=== PATIENT | female | born 1995 | race Caucasian/White ===

== ENCOUNTER 2018-10-23 19:05 | Emergency (ER) | payer SELFPAY ==
[~2018-10-23] VITALS: Ht 154.9 cm; Wt 59.0 kg
--- NOTE | 2018-10-23 19:40 | Diagnostic Imaging Report ---
INDICATION: Right wrist injury. TIME OF EXAM: 7:10 p.m. EXAMINATION: Three views of the right wrist were obtained. FINDINGS: The distal radius and ulna are intact. The carpus is intact. The metacarpals are unremarkable. No fractures are seen. IMPRESSION: No acute bony abnormality is detected. Dictated by: Dictated on workstation # [id number]
--- NOTE | 2018-10-23 20:37 | ED Upper Extremity ---
General Chief Complaint: Upper Extremity Stated Complaint: RT WRIST INJ Nursing Triage Note: right wrist injury friday playing kickball Nursing Sepsis Screen: No Definite Risk Source: patient History of Present Illness Date Seen by Provider: Oct 23, 2018 Time Seen by Provider: 20:36 Initial Comments 23-year-old female presenting with complaints of right wrist pain. She states that she injured it on Friday playing kickball. She tended to get something that day. She's had increasing pain since then. Especially today it was feeling worse. She has some mild bruising to the wrist and there is mild swelling. She denies any numbness or tingling. She has not tried taking anything for the pain today. She states that the pain is worse when she is using her hand and wrist. It is especially worse when she tries to lift or if she hits something against the wrist. Allergies and Home Medications Home Medications Ibuprofen 800 Mg Tablet, 600 MG PO Q8H PRN for PAIN Prescribed by: JOSE LYONS on 10/23/182055 Patient Home Medication List Home Medication List Reviewed: Yes Review of Systems Constitutional: no symptoms reported EENTM: no symptoms reported Respiratory: no symptoms reported Cardiovascular: no symptoms reported Gastrointestinal: no symptoms reported Genitourinary: no symptoms reported Musculoskeletal: see HPI Skin: see HPI Past Yadytla-Xcanna-Mzeifa Hx Past Med/Social Hx: Reviewed Nursing Past Med/Soc Hx Patient Social History Alcohol Use: Denies Use Recreational Drug Use: No Smoking Status: Never a Smoker 2nd Hand Smoke Exposure: No Recent Foreign Travel: No Contact w/Someone Who Travel: No Recent Infectious Disease Expo: No Recent Hopitalizations: No Physical Abuse: No Sexual Abuse: No Mistreated: No Fear: No Seasonal Allergies Seasonal Allergies: No Past Medical History Surgeries: No Respiratory: No Cardiac: No Neurological: No Genitourinary: No Gastrointestinal: No Musculoskeletal: No Endocrine: No HEENT: No Cancer: No Psychosocial: No Integumentary: No Blood Disorders: No Physical Exam Vital Signs Vital Signs - First Documented 10/23/18 10/23/18 19:32 21:07 Temp 98.1 Pulse 85 Resp 16 B/P (MAP) 134/73 (93) Pulse Ox 98 O2 Delivery Room Air Capillary Refill : Less Than 3 Seconds Height, Weight, BMI Height: 5'1.00" Weight: 130lbs. oz. 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, no motor/sensory deficits, alert, normal mood/affect, oriented x 3 Skin: warm/dry, ecchymosis (medial area of right wrist where she has pain and mild swelling) Progress/Results/Core Measures Results/Orders My Orders Orders - JOSE LYONS MD Wrist 3 View Right (10/23/18 19:26) Orthopedic Equiment (10/23/18 20:37) Ice: Apply To Affected Area (10/23/18 20:37) Vital Signs/I&O 10/23/18 10/23/18 19:32 21:07 Temp 98.1 Pulse 85 88 Resp 16 B/P (MAP) 134/73 (93) 120/62 (81) Pulse Ox 98 O2 Delivery Room Air Room Air Blood Pressure Mean: 93 Progress Progress Note : Progress Note Reviewed xrays of wrist and reading from radiologist. No definite fractures seen and treated. We will treat with splint, ice, rest and follow up with clinic if not improving. Counseled on use of NSAIDs as well. Diagnostic Imaging Diagonstic Imaging: Xray Plain Films/CT/US/NM/MRI: other (wrist) Comments NAME: RODRIGUEZ CASTILLO [facility] REC#: [id number] PT STATUS: DEP ER : 1995 PHYSICIAN: JOSE LYONS MD ADMIT DATE: 10/23/18/ER FS Signed Date of Exam:10/23/18 WRIST 3 VIEW RIGHT INDICATION: Right wrist injury. TIME OF EXAM: 7:10 p.m. EXAMINATION: Three views of the right wrist were obtained. FINDINGS: The distal radius and ulna are intact. The carpus is intact. The metacarpals are unremarkable. No fractures are seen. IMPRESSION: No acute bony abnormality is detected. Dictated by: Dictated on workstation # [id number] Dict: 10/23/181936 Trans: 10/23/182141 [facility] [id number] Interpreted by: NELLI HANCOCK MD Electronically signed by: NELLI HANCOCK MD 10/23/182141 Reviewed: Reviewed by Me (and radiology report) Departure Impression Primary Impression: Contusion of wrist Qualified Codes: S60.211A - Contusion of right wrist, initial encounter Additional Impression: Acute pain of right wrist Disposition: HOME, SELF-CARE Condition: Stable Departure-Patient Inst. Decision time for Depature: 20:54 Referrals: CLIFF FREIRE MD (PCP) Primary Care Physician Patient Instructions: Contusion (DC), Wrist Sprain (DC) Add. Discharge Instructions: Wear splint on your wrist to help with pain and support. Check with the clinic about your wrist if not improving within the next week with using the splint and taking Ibuprofen 600 mg every 8 hours as needed for pain and swelling. You may also apply ice 15-20 minutes every few hours as needed for pain and swelling/bruising. All discharge instructions reviewed with patient and/or family. Voiced understanding. Scripts Ibuprofen (Ibuprofen) 800 Mg Tablet 600 MG PO Q8H PRN for PAIN for 10 Days, #30 TAB 0 Refills Prov: JOSE LYONS MD 10/23/18 JOSE LYONS MD Oct 23, 2018 20:36
[2018-10-23] MEDS ORDERED: IBUP-1780 PO (20:56)
[2018-10-23 21:07] VITALS: BP 120/62
== END 2018-10-23 21:08 | disposition home or self-care (01) ==
LOC: EDUNIT# 19:05 → ER FS 19:08
DX: S60.211A Contusion of right wrist, initial encounter (principal); W21.00XA Struck by hit or thrown ball, unspecified type, initial encounter; Y93.6A Activity, physical games generally associated with school recess, summer camp and children
CPT/HCPCS: 73110

== ENCOUNTER 2018-12-22 20:13 | Emergency (ER) | payer SELFPAY ==
[~2018-12-22] VITALS: Ht 157.5 cm; Wt 59.0 kg
[~2018-12-22 20:13] MED LIST: IBUP-1780 PO
--- OUTSIDE RECORDS SUMMARY | 2018-12-22 20:21 | XMS REPORT | Continuity of Care Document ---
Author Organization Unknown Address Unknown Allergies There is no data. Medications There is no data. Problems Date Dx Coded Attending Type Code Diagnosis Diagnosed By 10/26/2018 JOSE LYONS MD, Ot M25.531 PAIN IN RIGHT WRIST 10/26/2018 JOSE LYONS MD, Ot S60.211A CONTUSION OF RIGHT WRIST, INITIAL ENCOUN 10/26/2018 JOSE LYONS MD, Ot W21.00XA STRUCK BY HIT OR THROWN BALL, UNSPECIFIE 10/26/2018 JOSE LYONS MD, Ot Y93.6A ACTVTY,[employer]CL [employer] Procedures There is no data. Results There is no data. Encounters ACCT No. Visit Date/Time Discharge Status Pt. Type Provider Facility Loc./Unit Complaint [id number] 10/23/2018 19:08:00 10/23/2018 21:08:00 DIS Outpatient JOSE LYONS MD [facility] ER FS RT WRIST INJ
[2018-12-22] MEDS ORDERED: PRD20T PO (20:43)
[2018-12-22] MEDS ORDERED: FAMO-119 PO (20:43)
--- NOTE | 2018-12-22 20:43 | ED Integumentary General ---
General Chief Complaint: Skin/Wound Problems Stated Complaint: ALL OVER BODY RASH Nursing Triage Note: Patient states that she walked through poison [place]. Patient has a rash from her knee down on the left leg. Patient also has a few diffuse areas of blisters on her abdomen. Source: patient, RN notes reviewed Exam Limitations: no limitations History of Present Illness Date Seen by Provider: Dec 22, 2018 Time Seen by Provider: 20:38 Allergies and Home Medications Allergies Coded Allergies: No Known Drug Allergies (Unverified , 12/22/18) Home Medications Ibuprofen 800 Mg Tablet, 600 MG PO Q8H PRN for PAIN Prescribed by: JOSE LYONS on 10/23/182055 Past Lbzkmby-Visxiy-Bkblhu Hx Patient Social History 2nd Hand Smoke Exposure: No Recent Foreign Travel: No Contact w/Someone Who Travel: No Recent Infectious Disease Expo: No Recent Hopitalizations: No Seasonal Allergies Seasonal Allergies: No Past Medical History Surgeries: No Respiratory: No Cardiac: No Neurological: No Genitourinary: No Gastrointestinal: No Musculoskeletal: No Endocrine: No HEENT: No Cancer: No Psychosocial: No Integumentary: No Blood Disorders: No Physical Exam Vital Signs Vital Signs - First Documented 12/22/18 20:27 Temp 98.5 Pulse 74 Resp 21 B/P (MAP) 119/62 (81) Pulse Ox 99 O2 Delivery Room Air Capillary Refill : Less Than 3 Seconds Progress/Results/Core Measures Results/Orders Vital Signs/I&O 12/22/18 20:27 Temp 98.5 Pulse 74 Resp 21 B/P (MAP) 119/62 (81) Pulse Ox 99 O2 Delivery Room Air Blood Pressure Mean: 81 Departure Impression Primary Impression: Contact dermatitis due to poison c[place] Disposition: 01 HOME, SELF-CARE Condition: Stable Departure-Patient Inst. Decision time for Depature: 20:40 Referrals: CLIFF FREIRE MD (PCP) Primary Care Physician Patient Instructions: Poison [place] Add. Discharge Instructions: All discharge instructions reviewed with patient and/or family. Voiced understanding. MAY REPEAT BENADRYL 50 mg EVERY 6 HOUR NEEDED. Scripts Famotidine (Pepcid) 20 Mg Tablet 20 MG PO BID, #14 TAB 0 Refills Prov: BRIANDA DAWSON DO 12/22/18 Prednisone (Prednisone) 20 Mg Tab 30 MG PO BID for 7 Days, #21 TAB Prov: BRIANDA DAWSON DO 12/22/18 BRIANDA DAWSON DO Dec 22, 2018 20:43
[2018-12-22] MEDS ORDERED: FAMOTIDINE 20 MG (PEPCID) TABLET PO ONE (20:45)
[2018-12-22] MEDS ORDERED: diphenhydrAMINE 25 MG TAB (BENADRYL) PO ONE ×2 (20:45→20:50)
[2018-12-22] MEDS ORDERED: predniSONE 20 MG TAB PO ONE (20:45)
[2018-12-22] MEDS ORDERED: predniSONE 20 MG TAB ONE (20:50)
[2018-12-22] MEDS ORDERED: FAMOTIDINE 20 MG (PEPCID) TABLET ONE (20:50)
[2018-12-22 20:55] VITALS: BP 119/62
== END 2018-12-22 20:55 | disposition home or self-care (01) ==
LOC: EDUNIT# 20:13 → ER FS 20:16
DX: L23.7 Allergic contact dermatitis due to plants, except food (principal)
CPT/HCPCS: 99283

== ENCOUNTER 2019-03-29 18:20 | Emergency (ER) | payer SELFPAY ==
[~2019-03-29] VITALS: Ht 157 cm; Wt 71.3 kg
[~2019-03-29 18:20] MED LIST changes: +FAMO-119 PO; +PRD20T PO
[2019-03-29] MEDS ORDERED: IBUPROFEN 800 MG (MOTRIN) TAB PO STA (18:32)
--- NOTE | 2019-03-29 18:39 | ED Upper Extremity ---
General Chief Complaint: Upper Extremity Stated Complaint: LT HAND INJ Source: patient History of Present Illness Date Seen by Provider: Mar 29, 2019 Time Seen by Provider: 18:24 Initial Comments 23-year-old female presenting with complaints of left hand pain. She states that she was fixing dinner and turned around to the grab a cookie sheet when she hit her hand hard against a wall accidentally. She has pain in her left hand at the base of her index finger and along the second metacarpal down to the base of her thumb. She has some erythema and contusion in this area. She has no numbness or tingling. She can move her hand, fingers and wrist but has pain with movement. She denies any prior injury to her hand or wrist. She has not taken anything for the pain prior to arrival. This happened just prior to coming to the emergency department. Allergies and Home Medications Allergies Coded Allergies: No Known Drug Allergies (Unverified , 12/22/18) Home Medications Famotidine 20 Mg Tablet, 20 MG PO BID Prescribed by: BRIANDA DAWSON on 12/22/182042 Ibuprofen 800 Mg Tablet, 600 MG PO Q8H PRN for PAIN Prescribed by: JOSE LYONS on 10/23/182055 Ibuprofen 800 Mg Tablet, 800 MG PO Q8H PRN for PAIN Prescribed by: JOSE LYONS on 03/29/191926 Prednisone 20 Mg Tab, 30 MG PO BID Prescribed by: BRIANDA DAWSON on 12/22/182042 Patient Home Medication List Home Medication List Reviewed: Yes Review of Systems Constitutional: No chills, No fever EENTM: no symptoms reported Respiratory: no symptoms reported Cardiovascular: no symptoms reported Gastrointestinal: no symptoms reported Genitourinary: no symptoms reported Musculoskeletal: see HPI Skin: see HPI Psychiatric/Neurological: Denies Numbness, Denies Paresthesia Past Oftorci-Xxcapw-Fudfha Hx Past Med/Social Hx: Reviewed Nursing Past Med/Soc Hx Patient Social History 2nd Hand Smoke Exposure: No Recent Hopitalizations: No Seasonal Allergies Seasonal Allergies: No Past Medical History Surgeries: No Respiratory: No Cardiac: No Neurological: No Genitourinary: No Gastrointestinal: No Musculoskeletal: No Endocrine: No HEENT: No Cancer: No Psychosocial: No Integumentary: No Blood Disorders: No Physical Exam Vital Signs Vital Signs - First Documented 03/29/19 19:08 Temp 37.0 Pulse 88 Resp 18 B/P (MAP) 135/72 (93) Pulse Ox 98 Capillary Refill : Height, Weight, BMI Height: 5'2.00" Weight: 130lbs. 0oz. 58.265391gc; BMI Method:Stated General Appearance: WD/WN, no apparent distress Cardiovascular: normal peripheral pulses Elbow/Forearm: normal inspection, non-tender, no evidence of injury, normal ROM Wrist: Yes limited ROM (due to pain in left wrist) Hand: Left, bone tenderness, limited ROM, soft tissue tenderness (contusion with erythema and mild swelling to back of left hand from base of index finger to wrist), swelling Neurologic/Tendon: normal sensation, normal motor functions, normal tendon functions Neurologic/Psychiatric: alert, oriented x 3 Skin: warm/dry, other (mild erythema from contusion to back of left hand from base of index finger to wrist along 2nd metacarpal bone) Progress/Results/Core Measures Results/Orders My Orders Orders - JOSE LYONS MD Hand 3 View Left (03/29/19 18:32) Ice: Apply To Affected Area (03/29/19 18:32) Elevate Affected Extremity (03/29/19 18:32) Ibuprofen Tablet (Motrin Tablet) (03/29/19 18:32) Cockup Splint (03/29/19 19:24) Vital Signs/I&O 03/29/19 03/29/19 19:08 19:30 Temp 37.0 37.0 Pulse 88 88 Resp 18 18 B/P (MAP) 135/72 (93) 135/72 (93) Pulse Ox 98 98 Progress Progress Note #1: Progress Note Ice, elevation and ibuprofen to help with pain. Check xrays of the left hand. Progress Note #2: Progress Note No fracture or dislocation seen on films. Treat symptomatically for contusion. Counselled for follow up and return precautions Diagnostic Imaging Diagonstic Imaging: Xray Plain Films/CT/US/NM/MRI: hand Comments NAME: RODRIGUEZ CASTILLO MED REC#: [id number] PT STATUS: REG ER : 1995 PHYSICIAN: JOSE LYONS MD ADMIT DATE: 03/29/19/ER FS Signed Date of Exam:03/29/19 HAND 3 VIEW LEFT INDICATION: Trauma, left hand pain. FINDINGS: Three views of the left hand show no fracture, dislocation, or other abnormality. IMPRESSION: Normal left hand. Dictated by: Dictated on workstation # [id number] Dict: 03/29/198 Trans: 03/29/191850 [id number] Interpreted by: NANCY MORENO MD Electronically signed by: NANCY MORENO MD 03/29/191850 Reviewed: Reviewed by Me (and reviewed report from radiologist) Departure Impression Primary Impression: Contusion of left hand, initial encounter Disposition: HOME, SELF-CARE Condition: Stable Departure-Patient Inst. Decision time for Depature: 19:25 Referrals: CLIFF FREIRE MD (PCP/Family) Primary Care Physician Patient Instructions: Contusion (DC) Add. Discharge Instructions: Wear splint for comfort over the next 5-7 days to help with pain and swelling Check with your doctor for continued problems/concerns Ice 15-20 minutes every few hours as needed for pain. Ibuprofen 800 mg every 8 hours as needed for pain and swelling Try to keep your hand elevated above your heart level to help with pain, throbbing and swelling. All discharge instructions reviewed with patient and/or family. Voiced understanding. Scripts Ibuprofen (Ibuprofen) 800 Mg Tablet 800 MG PO Q8H PRN for PAIN for 10 Days, #30 TAB 0 Refills Prov: JOSE LYONS MD 03/29/19 JOSE LYONS MD Mar 29, 2019 18:39
--- NOTE | 2019-03-29 18:51 | Diagnostic Imaging Report ---
INDICATION: Trauma, left hand pain. FINDINGS: Three views of the left hand show no fracture, dislocation, or other abnormality. IMPRESSION: Normal left hand. Dictated by: Dictated on workstation # [id number]
[2019-03-29] MEDS ORDERED: IBUP-1780 PO (19:27)
[2019-03-29 19:30] VITALS: BP 135/72
== END 2019-03-29 19:30 | disposition home or self-care (01) ==
LOC: EDUNIT# 18:20 → ER FS 18:21
DX: S60.222A Contusion of left hand, initial encounter (principal); Z79.52 Long term (current) use of systemic steroids; W22.8XXA Striking against or struck by other objects, initial encounter
CPT/HCPCS: 73130

== ENCOUNTER 2019-04-03 19:18 | Emergency (ER) | payer SELFPAY ==
[~2019-04-03] VITALS: Ht 154.9 cm; Wt 61.2 kg
--- NOTE | 2019-04-03 19:48 | ED Upper Extremity ---
General Chief Complaint: Upper Extremity Stated Complaint: LT HAND PAIN Nursing Triage Note: pt hit hand on wall on friday, seen in ed and instructed to follow up with primary has not, pt also instructed to take ibuprofen but has not taken any since . pt is wearing cock up splint Nursing Sepsis Screen: No Definite Risk Source: patient History of Present Illness Date Seen by Provider: Apr 03, 2019 Time Seen by Provider: 19:47 Initial Comments 23-year-old female presenting with complaints of left hand pain. She states that since Friday she has been wearing the cockup wrist splint but continues to have pain and swelling. She feels that things are worse and not improving. She has not followed up with the clinic or try to get in with orthopedics. She has intermittently been taking ibuprofen but feels that it makes her sleepy. She states that that time she gets home that would be 8 hours and she would be able to take another dose. She was concerned that there was still something else going on with her hand and so her family brought her here to the emergency Department he reevaluated. She does have some faint bruising to the back of her hand and has some pain at the base of her thumb. She is still able to use her left hand but again it is painful. Allergies and Home Medications Allergies Coded Allergies: No Known Drug Allergies (Unverified , 12/22/18) Home Medications Famotidine 20 Mg Tablet, 20 MG PO BID Prescribed by: BRIANDA DAWSON on 12/22/182042 Ibuprofen 800 Mg Tablet, 600 MG PO Q8H PRN for PAIN Prescribed by: JOSE LYONS on 10/23/182055 Ibuprofen 800 Mg Tablet, 800 MG PO Q8H PRN for PAIN Prescribed by: JOSE LYONS on 03/29/191926 Prednisone 20 Mg Tab, 30 MG PO BID Prescribed by: BRIANDA DAWSON on 12/22/182042 Patient Home Medication List Home Medication List Reviewed: Yes Review of Systems Constitutional: no symptoms reported EENTM: no symptoms reported Respiratory: no symptoms reported Cardiovascular: no symptoms reported Gastrointestinal: no symptoms reported Genitourinary: no symptoms reported Musculoskeletal: see HPI Skin: see HPI Past Hejdfvx-Ehvvbi-Liedtf Hx Past Med/Social Hx: Reviewed Nursing Past Med/Soc Hx Patient Social History Alcohol Use: Denies Use Recreational Drug Use: No 2nd Hand Smoke Exposure: No Recent Foreign Travel: No Contact w/Someone Who Travel: No Recent Infectious Disease Expo: No Recent Hopitalizations: No Physical Abuse: No Sexual Abuse: No Mistreated: No Fear: No Seasonal Allergies Seasonal Allergies: No Past Medical History Surgeries: No Respiratory: No Cardiac: No Neurological: No Genitourinary: No Gastrointestinal: No Musculoskeletal: No Endocrine: No HEENT: No Cancer: No Psychosocial: No Integumentary: No Blood Disorders: No Physical Exam Vital Signs Vital Signs - First Documented 04/03/19 19:29 Temp 37.2 Pulse 92 Resp 16 B/P (MAP) 128/56 (80) Pulse Ox 99 O2 Delivery Room Air Capillary Refill : Less Than 3 Seconds Height, Weight, BMI Height: 5'2.00" Weight: 130lbs. 0oz. 58.235792mp; 25.00 BMI Method:Stated General Appearance: WD/WN, no apparent distress Cardiovascular: normal peripheral pulses Wrist: Yes normal inspection, Yes non-tender, Yes no evidence of injury Hand: Left, bone tenderness (complaints of pain with palpation to the back of her left hand and thumb.), ecchymosis (faint bruising to the back of her hand), limited ROM, swelling (mild swelling to the back of her left hand) Neurologic/Tendon: normal sensation, normal motor functions, normal tendon functions Neurologic/Psychiatric: alert, oriented x 3 Skin: warm/dry, ecchymosis (mild bruising to back of left hand) Progress/Results/Core Measures Results/Orders My Orders Orders - OJSE LYONS MD Hand 3 View Left (04/03/19 19:51) Vital Signs/I&O 04/03/19 19:29 Temp 37.2 Pulse 92 Resp 16 B/P (MAP) 128/56 (80) Pulse Ox 99 O2 Delivery Room Air Blood Pressure Mean: 80 Progress Progress Note #1: Progress Note Since she has not followed up with clinic will check films here and see if there is any difference from Friday but this is still likely a bruise and not a fracture. Especially if she has been active and doing a lot than she will have more pain and swelling. She refused medicine stating she would be due to take ibuprofen when she gets home and would rather wait for that. Progress Note #2: Progress Note On my review of the 3 views of her left hand she has no acute fracture or any evidence of hairline crack or dislocation. Will encourage pt to continue with treatment and reassure her that she seems to have bruising and it can take as long as a few weeks to heal up, especially if she is using her hand a lot. again advised to see clinic for continued concerns Diagnostic Imaging Diagonstic Imaging: Xray Plain Films/CT/US/NM/MRI: other (left hand) Comments NAME: RODRIGUEZ CASTILLO MED REC#: [id number] PT STATUS: REG ER : 1995 PHYSICIAN: JOSE LYONS MD ADMIT DATE: 04/03/19/ER FS Draft Date of Exam:04/03/19 HAND 3 VIEW LEFT INDICATION: Injury to left hand. EXAMINATION: AP, oblique and lateral views of the left hand were obtained. FINDINGS: No fracture or acute bony abnormality is seen. IMPRESSION: Negative left hand, no change from 03/29/2019. Dictated on workstation # [id number] Dict: 04/03/192014 Trans: 04/03/192018 [facility] [id number] Interpreted by: EMI ZENDEJAS MD Electronically signed by: Reviewed: Reviewed by Me Departure Impression Primary Impression: Contusion of left hand, subsequent encounter Disposition: 01 HOME, SELF-CARE Condition: Stable Departure-Patient Inst. Decision time for Depature: 20:16 Referrals: CLIFF FREIRE MD (PCP/Family) Primary Care Physician Patient Instructions: Contusion (DC) Add. Discharge Instructions: Continue with splint for comfort and support. Ice for bruising, swelling and pain. Ibuprofen and Acetaminophen as needed for pain. Check with Dr. Freire or see Gus Sullivan or Orthopedics provider of your choice for continued concerns. All discharge instructions reviewed with patient and/or family. Voiced understanding. Images Extremities-Upper 1 - Mild (swelling and bruising to back of hand), Swelling (mild swelling to back of hand), Tenderness (mild tenderness to back of left hand and base of thumb) JOSE LYONS MD Apr 03, 2019 19:48
--- NOTE | 2019-04-03 20:19 | Diagnostic Imaging Report ---
INDICATION: Injury to left hand. EXAMINATION: AP, oblique and lateral views of the left hand were obtained. FINDINGS: No fracture or acute bony abnormality is seen. IMPRESSION: Negative left hand, no change from 03/29/2019. Dictated by: Dictated on workstation # [id number]
[2019-04-03 20:30] VITALS: BP 128/56
== END 2019-04-03 20:32 | disposition home or self-care (01) ==
LOC: EDUNIT# 19:18 → ER FS 19:19
DX: S60.222A Contusion of left hand, initial encounter (principal); Z79.52 Long term (current) use of systemic steroids; W22.8XXA Striking against or struck by other objects, initial encounter
CPT/HCPCS: 73130

== ENCOUNTER 2020-08-13 21:02 | Emergency (ER) | payer SELFPAY ==
[~2020-08-13] VITALS: Ht 154.9 cm; Wt 66.3 kg
--- NOTE | 2020-08-13 21:44 | Diagnostic Imaging Report ---
Clinical indication: Patient status post fall with left wrist pain. Exam: X-ray of the left wrist, 3 views. Comparison: X-ray of the left hand dated 04/03/2019. Findings and impression: There is no acute fracture or dislocation. The scapholunate interval and radiocarpal joint regions are unremarkable. There is no significant bony abnormality seen. Dictated by: Dictated on workstation # [id number]
[2020-08-13] MEDS ORDERED: IBUPROFEN 600 MG (MOTRIN) TAB PO ONE (22:15)
--- NOTE | 2020-08-13 22:28 | ED Upper Extremity ---
General Chief Complaint: Upper Extremity Stated Complaint: LEFT WRIST INJURY Nursing Triage Note: Patient states that she fell getting out of the shower this AM. Patient is complaining of left wrist pain. Nursing Sepsis Screen: No Definite Risk Source: patient History of Present Illness Date Seen by Provider: Aug 13, 2020 Time Seen by Provider: 21:00 Initial Comments Patient is a 25-year-old right-handed female who presents with left injury. Patient fell 10 hours ago striking the dorsal surface of her proximal left wrist. Patient states she was able to use hand and wrist while at work throughout the day but it gradually began to hurt more despite taking ibuprofen. No other injuries or pain complaints. Onset: this morning Pain/Injury Location: left wrist Method of Injury: direct blow Modifying Factors: Improves With Movement, Improves With Pain Medication Allergies and Home Medications Allergies Coded Allergies: No Known Drug Allergies (Unverified , 12/22/18) Home Medications Famotidine 20 Mg Tablet, 20 MG PO BID Prescribed by: BRIANDA DAWSON on 12/22/182042 Ibuprofen 800 Mg Tablet, 600 MG PO Q8H PRN for PAIN Prescribed by: JOSE LYONS on 10/23/182055 Ibuprofen 800 Mg Tablet, 800 MG PO Q8H PRN for PAIN Prescribed by: JOSE LYONS on 03/29/191926 Prednisone 20 Mg Tab, 30 MG PO BID Prescribed by: BRIANDA DAWSON on 12/22/182042 Patient Home Medication List Home Medication List Reviewed: Yes Review of Systems Constitutional: see HPI EENTM: see HPI Respiratory: see HPI Cardiovascular: see HPI Gastrointestinal: see HPI Musculoskeletal: see HPI Skin: see HPI Psychiatric/Neurological: See HPI All Other Systems Reviewed Negative Unless Noted: Yes Past Yetirek-Bjrbei-Tchpwe Hx Past Med/Social Hx: Reviewed Nursing Past Med/Soc Hx Patient Social History Alcohol Use: Denies Use 2nd Hand Smoke Exposure: No Recent Infectious Disease Expo: No Recent Hopitalizations: No Seasonal Allergies Seasonal Allergies: No Past Medical History Surgeries: No Respiratory: No Cardiac: No Neurological: No Genitourinary: No Gastrointestinal: No Musculoskeletal: No Endocrine: No HEENT: No Cancer: No Psychosocial: No Integumentary: No Blood Disorders: No Physical Exam Vital Signs Vital Signs - First Documented 08/13/20 21:09 Temp 36.9 Pulse 81 Resp 16 B/P (MAP) 121/65 (83) Pulse Ox 98 O2 Delivery Room Air Capillary Refill : Less Than 3 Seconds Height, Weight, BMI Height: 5'2.00" Weight: 130lbs. 0oz. 58.883611hm; 27.00 BMI Method:Stated General Appearance: mild distress HEENT: PERRL/EOMI, normal ENT inspection Neck: supple Shoulder: normal inspection Elbow/Forearm: normal inspection Wrist: Yes soft tissue tenderness (Dorsum left wrist) Neurologic/Tendon: normal sensation Neurologic/Psychiatric: visual display manager II-XII nml as tested, no motor/sensory deficits, oriented x 3 Skin: normal color, warm/dry Progress/Results/Core Measures Results/Orders My Orders Orders - YOSEF ZEPEDA DO Wrist 3 View Left (08/13/20 21:24) Ibuprofen Tablet (Motrin Tablet) (08/13/20 22:15) Vital Signs/I&O 08/13/20 21:09 Temp 36.9 Pulse 81 Resp 16 B/P (MAP) 121/65 (83) Pulse Ox 98 O2 Delivery Room Air Blood Pressure Mean: 83 Departure Communication (Admissions) Left wrist x-ray: No obvious displaced fracture per radiology report Recommend rest, ice, compression, elevation. Impression Primary Impression: Contusion of left wrist Disposition: HOME, SELF-CARE Condition: Stable Departure-Patient Inst. Decision time for Depature: 22:27 Referrals: CLIFF FREIRE MD (PCP/Family) Primary Care Physician Patient Instructions: Contusion (DC) Add. Discharge Instructions: Please wear splint, apply ice take ibuprofen for pain and keep it elevated. Follow-up with your o PCP in 3 to 5 days if symptoms persist. All discharge instructions reviewed with patient and/or family. Voiced understanding. YOSEF ZEPEDA DO Aug 13, 2020 22:27
[2020-08-13 22:31] VITALS: BP 118/72
== END 2020-08-13 22:31 | disposition home or self-care (01) ==
LOC: EDUNIT# 21:02 → ER FS 21:05
DX: S60.212A Contusion of left wrist, initial encounter (principal); Z79.52 Long term (current) use of systemic steroids; W22.8XXA Striking against or struck by other objects, initial encounter
CPT/HCPCS: 73110

== ENCOUNTER 2020-09-26 15:09 | Emergency (ER) | payer OTHER ==
[~2020-09-26] VITALS: Ht 154 cm; Wt 68.0 kg
[2020-09-26 15:58] VITALS: BP 119/58
--- NOTE | 2020-09-26 16:15 | ED Upper Extremity ---
General Chief Complaint: Laceration Stated Complaint: LT INDEX FINGER LAC Nursing Triage Note: LACERATION OF THE LEFT INDEX FINGER WITH A KNIFE AT [employer] WHILE WORKING. Nursing Sepsis Screen: No Definite Risk History of Present Illness Date Seen by Provider: Sep 26, 2020 Time Seen by Provider: 16:00 Initial Comments 25-year-old female presents with a cut to her left index finger occurring at work. Accidentally cut it with a knife. Denies any other injury or pain. Tetanus is up-to-date. Allergies and Home Medications Allergies Coded Allergies: No Known Drug Allergies (Unverified , 12/22/18) Home Medications Famotidine 20 Mg Tablet, 20 MG PO BID Prescribed by: BRIANDA DAWSON on 12/22/182042 Ibuprofen 800 Mg Tablet, 600 MG PO Q8H PRN for PAIN Prescribed by: JOSE LYONS on 10/23/182055 Ibuprofen 800 Mg Tablet, 800 MG PO Q8H PRN for PAIN Prescribed by: JOSE LYONS on 03/29/191926 Prednisone 20 Mg Tab, 30 MG PO BID Prescribed by: BRIANDA DAWSON on 12/22/182042 Patient Home Medication List Home Medication List Reviewed: Yes Review of Systems Constitutional: No fever, No malaise, No weakness Musculoskeletal: see HPI Skin: see HPI, other (laceration left index finger) Past Zxmnohp-Tbmaly-Gfsjti Hx Past Med/Social Hx: Reviewed Nursing Past Med/Soc Hx Patient Social History Alcohol Use: Denies Use Smoking Status: Current Everyday Smoker 2nd Hand Smoke Exposure: No Recent Infectious Disease Expo: No Recent Hopitalizations: No Seasonal Allergies Seasonal Allergies: No Past Medical History Surgeries: No Respiratory: No Cardiac: No Neurological: No Genitourinary: No Gastrointestinal: No Musculoskeletal: No Endocrine: No HEENT: No Cancer: No Psychosocial: No Integumentary: No Blood Disorders: No Physical Exam Vital Signs Vital Signs - First Documented 09/26/20 15:58 Temp 36.7 Pulse 76 Resp 16 B/P (MAP) 119/58 (78) Pulse Ox 99 O2 Delivery Room Air Capillary Refill : Less Than 3 Seconds Height, Weight, BMI Height: 5'2.00" Weight: 130lbs. 0oz. 58.934931sr; 28.00 BMI Method:Stated General Appearance: WD/WN, no apparent distress Hand: normal inspection, normal ROM, Left Neurologic/Tendon: normal sensation, normal motor functions, normal tendon functions, responds to pain Skin: normal color, warm/dry, other (2 cm flap laceration - distal tip left index finger) Procedures/Interventions Wound Location: Upper Extremities Wound Length (cm): 2 Wound's Depth, Shape: flap Wound Explored: clean Irrigated w/ Saline (ccs): 50 Betadine Prep?: Yes Anesthesia: 1% Lidocaine Suture: Ethlion Suture Size: 5-0 Number of Sutures: 5 Sterile Dressing Applied?: Yes Progress/Results/Core Measures Results/Orders Vital Signs/I&O 09/26/20 15:58 Temp 36.7 Pulse 76 Resp 16 B/P (MAP) 119/58 (78) Pulse Ox 99 O2 Delivery Room Air Blood Pressure Mean: 78 Departure Impression Primary Impression: Laceration of finger Qualified Codes: S61.211A - Laceration without foreign body of left index finger without damage to nail, initial encounter Disposition: 01 HOME, SELF-CARE Condition: Improved Departure-Patient Inst. Decision time for Depature: 16:33 Referrals: CLIFF FREIRE MD (PCP/Family) Primary Care Physician Patient Instructions: Laceration Repair With Stitches (DC) Add. Discharge Instructions: follow up with your PCP or worker's comp provider for removal of your stitches in 1 week. All discharge instructions reviewed with patient and/or family. Voiced understanding. Work/School Note: Work Release Form Date Seen in the Emergency Department: Sep 26, 2020 Return to Work: Sep 26, 2020 Restrictions: No Restrictions FLOWER EARL DO Sep 26, 2020 16:15
[2020-09-27] MEDS ORDERED: TRM50T PO (19:26)
== END 2020-09-26 16:36 | disposition home or self-care (01) ==
LOC: EDUNIT# 15:09 → ER FS 15:12
DX: S61.211A Laceration without foreign body of left index finger without damage to nail, initial encounter (principal); F17.200 Nicotine dependence, unspecified, uncomplicated; Z79.52 Long term (current) use of systemic steroids; W26.0XXA Contact with knife, initial encounter; Y92.59 Other trade areas as the place of occurrence of the external cause; Y99.0 Civilian activity done for income or pay
CPT/HCPCS: 99282

== ENCOUNTER 2020-09-27 19:02 | Emergency (ER) | payer OTHER ==
[~2020-09-27] VITALS: Ht 154.9 cm; Wt 59.9 kg
[2020-09-27 19:14] VITALS: BP 125/53
[2020-09-27] MEDS ORDERED: TRM50T PO (19:26)
--- NOTE | 2020-09-27 19:26 | ED Upper Extremity ---
General Chief Complaint: Laceration Stated Complaint: STITCHES CAME OPEN ON LT INDEX FINGER Source: patient History of Present Illness Date Seen by Provider: Sep 27, 2020 Time Seen by Provider: 19:15 Initial Comments Patient is a 25-year-old right-handed female who presents for wound check. Patient was evaluated in the emergency department last evening for a laceration to her right index finger. Sutures were placed. One of the sutures dehisced today. Patient also reports continued pain. No other symptoms or complaints. On exam, the patient has a partial flap/skin avulsion with early healing without signs of infection involving the finger pad of the right index finger. There is 1 missing suture but otherwise the wound is intact with good edge approximation. Pain/Injury Location: right 2nd finger Method of Injury: other Modifying Factors: Improves With Other Allergies and Home Medications Allergies Coded Allergies: No Known Drug Allergies (Unverified , 12/22/18) Home Medications Famotidine 20 Mg Tablet, 20 MG PO BID Prescribed by: BRIANDA DAWSON on 12/22/182042 Ibuprofen 800 Mg Tablet, 600 MG PO Q8H PRN for PAIN Prescribed by: JOSE LYONS on 10/23/182055 Ibuprofen 800 Mg Tablet, 800 MG PO Q8H PRN for PAIN Prescribed by: JOSE LYONS on 03/29/191926 Prednisone 20 Mg Tab, 30 MG PO BID Prescribed by: BRIANDA DAWSON on 12/22/182042 Patient Home Medication List Home Medication List Reviewed: Yes Review of Systems Constitutional: no symptoms reported EENTM: see HPI Respiratory: see HPI Cardiovascular: see HPI Musculoskeletal: see HPI Skin: other (partial flap/skin avulsion with early healing without signs of infection involving the finger pad of the right index finger. There is 1 missing suture but otherwise the wound is intact with good edge approximation.) Psychiatric/Neurological: See HPI All Other Systems Reviewed Negative Unless Noted: Yes Past Rwhhboc-Vvmiev-Vjnrha Hx Patient Social History Alcohol Use: Denies Use Smoking Status: Never a Smoker 2nd Hand Smoke Exposure: No Recent Hopitalizations: No Seasonal Allergies Seasonal Allergies: No Past Medical History Surgeries: No Respiratory: No Cardiac: No Neurological: No Genitourinary: No Gastrointestinal: No Musculoskeletal: No Endocrine: No HEENT: No Cancer: No Psychosocial: No Integumentary: No Blood Disorders: No Physical Exam Vital Signs Capillary Refill : Height, Weight, BMI Height: 5'2.00" Weight: 130lbs. 0oz. 58.293495nt; 28.00 BMI Method:Stated General Appearance: WD/WN Hand: laceration (partial flap/skin avulsion with early healing without signs of infection involving the finger pad of the right index finger. There is 1 mis sing suture but otherwise the wound is intact with good edge approximation.) Procedures/Interventions Suture Size: 5-0 Departure Communication (Admissions) Wound appears to be appropriately healing. No signs of infection. Patient does appear to be in some pain. Will prescribe tramadol and ibuprofen. Follow-up with work comp or PCP for suture removal in 7 to 8 days. Return precautions reviewed. Impression Primary Impression: Visit for wound check Disposition: HOME, SELF-CARE Condition: Stable Departure-Patient Inst. Decision time for Depature: 19:24 Referrals: CLIFF FREIRE MD (PCP/Family) Primary Care Physician Add. Discharge Instructions: You wound was rechecked in the emergency department. It does not require any additional treatment at this time. He may take ibuprofen for pain and tramadol as needed for additional relief. Please allow 8 to 10 days for your skin to heal and follow-up with your PCP or work comp doctor for suture removal. Return to the ED if signs of infection. All discharge instructions reviewed with patient and/or family. Voiced understanding. Scripts Tramadol HCl (Tramadol HCl) 50 Mg Tablet 50 MG PO Q6H PRN for PAIN for 3 Days, #10 TAB 0 Refills Prov: YOSEF ZEPEDA DO 09/27/20 YOSEF ZEPEDA DO Sep 27, 2020 19:26
== END 2020-09-27 19:28 | disposition home or self-care (01) ==
LOC: EDUNIT# 19:02 → ER FS 19:04
DX: Z48.01 Encounter for change or removal of surgical wound dressing (principal); Z79.52 Long term (current) use of systemic steroids
CPT/HCPCS: 99282

== ENCOUNTER 2020-10-02 20:30 | Emergency (ER) | payer OTHER ==
[~2020-10-02] VITALS: Ht 154.9 cm; Wt 61.2 kg
[~2020-10-02 20:30] MED LIST changes: +TRM50T PO
[2020-10-02 20:37] VITALS: BP 122/64
--- NOTE | 2020-10-02 20:43 | ED Integumentary General ---
General Chief Complaint: Skin/Wound Problems Stated Complaint: LT INDEX FINGER PAIN Nursing Triage Note: PT AMBULATE TO ROOM FS02 WITH C/O LEFT FINGER PAIN. PT HAS WOUND ON LEFT INDEX FINGER WITH SUTURES PRESENT. PT REPORTS PAIN TO FINGER. History of Present Illness Date Seen by Provider: Oct 02, 2020 Time Seen by Provider: 20:41 Initial Comments here for wound check - laceration to left index finger repaired 09/26 myself. See note for details. C/o pain and concern that it's infected. Does not have a PCP, has not established. Allergies and Home Medications Allergies Coded Allergies: No Known Drug Allergies (Unverified , 12/22/18) Home Medications Famotidine 20 Mg Tablet, 20 MG PO BID Prescribed by: BRIANDA DAWSON on 12/22/182042 Ibuprofen 800 Mg Tablet, 600 MG PO Q8H PRN for PAIN Prescribed by: JOSE LYONS on 10/23/182055 Ibuprofen 800 Mg Tablet, 800 MG PO Q8H PRN for PAIN Prescribed by: JOSE LYONS on 03/29/191926 Prednisone 20 Mg Tab, 30 MG PO BID Prescribed by: BRIANDA DAWSON on 12/22/182042 Tramadol HCl 50 Mg Tablet, 50 MG PO Q6H PRN for PAIN Prescribed by: YOSEF ZEPEDA on 09/27/201925 Patient Home Medication List Home Medication List Reviewed: Yes Review of Systems Review of Systems Constitutional: No fever, No malaise, No weakness Skin: No change in color; other (sutures left index finger) Past Puahadp-Xhjmxq-Cnpvsl Hx Patient Social History 2nd Hand Smoke Exposure: No Recent Infectious Disease Expo: No Recent Hopitalizations: No Seasonal Allergies Seasonal Allergies: No Past Medical History Surgeries: No Respiratory: No Cardiac: No Neurological: No Genitourinary: No Gastrointestinal: No Musculoskeletal: No Endocrine: No HEENT: No Cancer: No Psychosocial: No Integumentary: No Blood Disorders: No Physical Exam Vital Signs Vital Signs - First Documented 10/02/20 20:37 Temp 36.8 Pulse 87 Resp 17 B/P (MAP) 122/64 (83) O2 Delivery Room Air Capillary Refill : Less Than 3 Seconds General Appearance: WD/WN, no apparent distress Skin: normal color, warm/dry, other (healing wound with sutures intact. NO dehiscense. No erythema or discharge. Appropriate appearance for a flap lac of distal finger) Procedures/Interventions Suture Size: 5-0 Progress/Results/Core Measures Results/Orders Vital Signs/I&O 10/02/20 20:37 Temp 36.8 Pulse 87 Resp 17 B/P (MAP) 122/64 (83) O2 Delivery Room Air Blood Pressure Mean: 83 Progress Progress Note : Progress Note reassurance given, encouraged good wound care and follow up to consider suture removal on 06 October Departure Impression Primary Impression: Visit for wound check Disposition: HOME, SELF-CARE Condition: Stable Departure-Patient Inst. Decision time for Depature: 20:42 Referrals: CLIFF FREIRE MD (PCP/Family) Primary Care Physician Patient Instructions: Wound Care (DC) Add. Discharge Instructions: Your finger looks good considering you nearly lost the tip of it. The healing is normal and there is no sign of infection. Continue to keep it clean and dry. Apply a small amount of antibiotic ointment at bedtime. Keep covered while at work. Follow up for suture removal on 06 October All discharge instructions reviewed with patient and/or family. Voiced understanding. FLOWER EARL DO Oct 02, 2020 20:43
== END 2020-10-02 20:46 | disposition home or self-care (01) ==
LOC: EDUNIT# 20:30 → ER FS 20:31
DX: Z48.00 Encounter for change or removal of nonsurgical wound dressing (principal); Z79.52 Long term (current) use of systemic steroids
CPT/HCPCS: 99282

== ENCOUNTER 2020-10-05 14:16 | Emergency (ER) | payer OTHER ==
[~2020-10-05] VITALS: Ht 154.9 cm; Wt 61.2 kg
[2020-10-05 14:26] VITALS: BP 118/52
== END 2020-10-05 14:40 | disposition home or self-care (01) ==
LOC: EDUNIT# 14:16 → ER FS 14:18
DX: Z48.02 Encounter for removal of sutures (principal)

== ENCOUNTER 2021-01-18 19:10 | Emergency (ER) | payer SELFPAY ==
[~2021-01-18] VITALS: Ht 154.9 cm; Wt 68.9 kg
[2021-01-18 19:20] VITALS: BP 135/73
--- NOTE | 2021-01-18 19:41 | ED Upper Extremity ---
General Chief Complaint: Trauma-Non Activation Stated Complaint: LEFT HAND INJ Nursing Triage Note: BURN TO FINGERS ON LEFT HAND WHILE BOILING WATER Source: patient History of Present Illness Date Seen by Provider: Jan 18, 2021 Time Seen by Provider: 21:30 Initial Comments Patient is a 25-year-old right-handed female who presents with early second- degree wheeler to second third and fourth fingers of left hand. Patient with noncircumferential splash wheeler on left hand from [place]. Pain is moderate to severe. Sensation is intact. Patient was referred from [facility].. Onset: just prior to arrival Pain/Injury Location: left 2nd finger Method of Injury: other Modifying Factors: Improves With Other Allergies and Home Medications Allergies Coded Allergies: No Known Drug Allergies (Unverified , 12/22/18) Home Medications Famotidine 20 Mg Tablet, 20 MG PO BID Prescribed by: BRIANDA DAWSON on 12/22/182042 Hydrocodone/Acetaminophen 1 Each Tablet, 1 TAB PO Q4H PRN for PAIN-MODERATE (5- 7) Prescribed by: YOSEF ZEPEDA on 01/18/212007 Ibuprofen 800 Mg Tablet, 600 MG PO Q8H PRN for PAIN Prescribed by: JOSE LYONS on 10/23/182055 Ibuprofen 800 Mg Tablet, 800 MG PO Q8H PRN for PAIN Prescribed by: JOSE LYONS on 03/29/191926 Prednisone 20 Mg Tab, 30 MG PO BID Prescribed by: BRIANDA DAWSON on 12/22/182042 Tramadol HCl 50 Mg Tablet, 50 MG PO Q6H PRN for PAIN Prescribed by: YOSEF ZEPEDA on 09/27/201925 Patient Home Medication List Home Medication List Reviewed: Yes Review of Systems Constitutional: no symptoms reported EENTM: see HPI Respiratory: no symptoms reported, cough Skin: see HPI Past Fvjjyan-Rtnwjq-Asrgkv Hx Patient Social History Tobacco Use?: No Smoking Status: Never a Smoker Substance use?: No Alcohol Use?: No Pt feels they are or have been: No Seasonal Allergies Seasonal Allergies: No Past Medical History Surgeries: No Respiratory: No Cardiac: No Neurological: No Genitourinary: No Gastrointestinal: No Musculoskeletal: No Endocrine: No HEENT: No Cancer: No Psychosocial: No Integumentary: No Blood Disorders: No Physical Exam Vital Signs Vital Signs - First Documented 01/18/21 19:20 Temp 36.4 Pulse 86 Resp 17 B/P (MAP) 135/73 (93) O2 Delivery Room Air Capillary Refill : Less Than 3 Seconds Height, Weight, BMI Height: 5'2.00" Weight: 130lbs. 0oz. 58.450609kl; 28.00 BMI Method:Stated General Appearance: mild distress HEENT: PERRL/EOMI Hand: Left, swelling (Early blistering to extensor surface of second third and fourth digits of left hand) Neurologic/Psychiatric: no motor/sensory deficits, alert, oriented x 3 Procedures/Interventions Suture Size: 5-0 Progress/Results/Core Measures Results/Orders Vital Signs/I&O 01/18/21 19:20 Temp 36.4 Pulse 86 Resp 17 B/P (MAP) 135/73 (93) O2 Delivery Room Air Blood Pressure Mean: 93 Departure Communication (Admissions) Second-degree non circumferential thermal wheeler of left second third and fourth digits. Supportive care recommended with PCP follow-up as needed. Return precautions reviewed Impression Primary Impression: Second degree burn of multiple fingers not including thumb Disposition: 01 HOME, SELF-CARE Condition: Stable Departure-Patient Inst. Decision time for Depature: 20:07 Referrals: NO,LOCAL PHYSICIAN (PCP/Family) Primary Care Physician Patient Instructions: Skin Wheeler (DC) Add. Discharge Instructions: Please cover fingers wheeler with Neosporin take ibuprofen for pain and hydrocodone as needed for additional relief. All discharge instructions reviewed with patient and/or family. Voiced understanding. YOSEF ZEPEDA DO Jan 18, 2021 19:41
[2021-01-18] MEDS ORDERED: ACHD5005 PO (20:08)
[2021-01-18] MEDS ORDERED: TRM50T PO ×3 (20:11→20:19)
== END 2021-01-18 20:26 | disposition home or self-care (01) ==
LOC: EDUNIT# 19:10 → ER FS 19:11
DX: T23.232A Burn of second degree of multiple left fingers (nail), not including thumb, initial encounter (principal); Z79.52 Long term (current) use of systemic steroids; X10.1XXA Contact with hot food, initial encounter
CPT/HCPCS: 99282

== ENCOUNTER 2021-02-28 14:54 | Emergency (ER) | payer SELFPAY ==
[~2021-02-28] VITALS: Ht 154.9 cm; Wt 69.7 kg
[~2021-02-28 14:54] MED LIST changes: +ACHD5005 PO
[2021-02-28 15:01] VITALS: BP 112/57
--- NOTE | 2021-02-28 15:08 | ED Upper Extremity ---
General Chief Complaint: Upper Extremity Stated Complaint: RT ARM INJ History of Present Illness Date Seen by Provider: Feb 28, 2021 Time Seen by Provider: 15:04 Initial Comments -year-old female presents with right upper extremity injury yesterday. States she hit against the wall really hard and felt a pop. Seen in urgent care yesterday had an x-ray and was told they could not read it and call her back after radiology reading. She has not heard back so she came to the ER today. Today she does have more swelling and moderate bruising pain with moving her hand and wrist. Denies previous fracture of her extremities. Allergies and Home Medications Allergies Coded Allergies: No Known Drug Allergies (Unverified , 12/22/18) Home Medications Famotidine 20 Mg Tablet, 20 MG PO BID Prescribed by: BRIANDA DAWSON on 12/22/182042 Ibuprofen 800 Mg Tablet, 600 MG PO Q8H PRN for PAIN Prescribed by: JOSE LYONS on 10/23/182055 Ibuprofen 800 Mg Tablet, 800 MG PO Q8H PRN for PAIN Prescribed by: JOSE LYONS on 03/29/191926 Prednisone 20 Mg Tab, 30 MG PO BID Prescribed by: BRIANDA DAWSON on 12/22/182042 Tramadol HCl 50 Mg Tablet, 50 MG PO Q4H PRN for PAIN-MODERATE (5-7) Prescribed by: YOSEF ZEPEDA on 02/10/21 0706 Tramadol HCl 50 Mg Tablet, 50 MG PO Q6H PRN for PAIN Prescribed by: YOSEF ZEPEDA on 02/12/21206 Tramadol HCl 50 Mg Tablet, 50 MG PO Q6H PRN for PAIN Prescribed by: YOSEF ZEPEDA on 02/12/21206 Patient Home Medication List Home Medication List Reviewed: Yes Review of Systems Constitutional: No fever, No malaise, No weakness Musculoskeletal: joint pain (R wrist), other (pain, swelling and bruising- R wrist) Skin: see HPI, change in color Past Ikfbxap-Jvjpwe-Vhpenb Hx Patient Social History Tobacco Use?: No Seasonal Allergies Seasonal Allergies: No Past Medical History Surgeries: No Respiratory: No Cardiac: No Neurological: No Genitourinary: No Gastrointestinal: No Musculoskeletal: No Endocrine: No HEENT: No Cancer: No Psychosocial: No Integumentary: No Blood Disorders: No Physical Exam Vital Signs Vital Signs - First Documented 02/28/21 15:01 Temp 36.1 Pulse 71 Resp 16 B/P (MAP) 112/57 (75) Pulse Ox 100 O2 Delivery Room Air Capillary Refill : Height, Weight, BMI Height: 5'2.00" Weight: 130lbs. 0oz. 58.970452lz; 28.00 BMI Method:Stated General Appearance: WD/WN, no apparent distress Shoulder: normal inspection, non-tender, no evidence of injury, normal ROM Elbow/Forearm: normal inspection, non-tender, no evidence of injury, normal ROM, Right Wrist: Yes bone tenderness, Yes ecchymosis, Yes limited ROM, Yes pain, Yes soft tissue tenderness, Yes swelling (distal ulna) Procedures/Interventions Suture Size: 5-0 Progress/Results/Core Measures Results/Orders My Orders Orders - FLOWER EARL DO Wrist 3 View Right (02/28/21 15:04) Vital Signs/I&O 02/28/21 15:01 Temp 36.1 Pulse 71 Resp 16 B/P (MAP) 112/57 (75) Pulse Ox 100 O2 Delivery Room Air Diagnostic Imaging Diagonstic Imaging: Xray Comments EXAMINATION: Right wrist radiographs, 3 views. COMPARISON: October 23, 2018. HISTORY: 25-year-old female, right wrist pain and swelling. Hit wall. FINDINGS: There is no identified acute fracture. Bone mineralization and alignment is unremarkable. There is no radiopaque foreign body. Joint spaces appear well preserved. IMPRESSION: No identified acute bony abnormality of the right wrist. Dictated by: Dictated on workstation # [id number] Dict: 02/28/21 1530 Trans: 02/28/21 1639 [facility] [id number] Interpreted by: CAROLA PUCKETT MD Electronically signed by: CAROLA PUCKETT MD 02/28/21 1639 Departure Impression Primary Impression: Contusion of right wrist Qualified Codes: S60.211D - Contusion of right wrist, subsequent encounter Disposition: HOME, SELF-CARE Condition: Stable Departure-Patient Inst. Decision time for Depature: 15:33 Referrals: CLIFF FREIRE MD (PCP/Family) Primary Care Physician Patient Instructions: Contusion (DC) Add. Discharge Instructions: see Dr Freire in 2 weeks if not improving All discharge instructions reviewed with patient and/or family. Voiced understanding. FLOWER EARL DO Feb 28, 2021 15:08
--- NOTE | 2021-02-28 15:35 | Diagnostic Imaging Report ---
EXAMINATION: Right wrist radiographs, 3 views. COMPARISON: October 23, 2018. HISTORY: 25-year-old female, right wrist pain and swelling. Hit wall. FINDINGS: There is no identified acute fracture. Bone mineralization and alignment is unremarkable. There is no radiopaque foreign body. Joint spaces appear well preserved. IMPRESSION: No identified acute bony abnormality of the right wrist. Dictated by: Dictated on workstation # [id number]
== END 2021-02-28 15:44 | disposition home or self-care (01) ==
LOC: EDUNIT# 14:54 → ER FS 14:56
DX: S60.211A Contusion of right wrist, initial encounter (principal); Z79.52 Long term (current) use of systemic steroids; W22.01XA Walked into wall, initial encounter
CPT/HCPCS: 73110

== ENCOUNTER 2021-09-11 21:14 | Emergency (ER) | payer SELFPAY ==
[~2021-09-11] VITALS: Ht 154.9 cm; Wt 67.4 kg
[2021-09-11 21:17] VITALS: BP 129/83
[2021-09-11] MEDS ORDERED: IBUPROFEN 800 MG (MOTRIN) TAB PO STA (21:22)
--- NOTE | 2021-09-11 21:29 | ED Lower Extremity ---
General Chief Complaint: Lower Extremity Stated Complaint: FALL,R KNEE PAIN Source: patient History of Present Illness Date Seen by Provider: Sep 11, 2021 Time Seen by Provider: 21:16 Initial Comments 26 yo female presenting by private vehicle with complaint of right knee pain. She states that approximately 15 minutes prior to arrival in the ED she was go ing to the bathroom and when she went to get up off the stool she slipped on some water. That caused her to hit her right knee against the wall. She had severe pain and felt like something cracked in her knee. She has increased pain with palpation, movement, trying to bear weight. She has been able to bear weight but states that it hurts when she does that. She has had previous injury with that knee when she used to run track and high school. She did not take anything for pain and immediately rushed to the emergency department. She denies hitting her head or have any other injuries. She had no loss of consciousness. She just finished her most recent menstrual cycle. Onset: just prior to arrival Severity: severe Pain/Injury Location: right knee Method of Injury: direct blow (slipped in the bathroom getting up off the toilet and hit knee against the wall) Modifying Factors: Worse With Movement Allergies and Home Medications Allergies Coded Allergies: No Known Drug Allergies (Unverified , 12/22/18) Patient Home Medication List Home Medication List Reviewed: Yes Ibuprofen (Ibuprofen) 800 Mg Tablet, 800 MG PO Q8H PRN for PAIN Prescribed by: JOSE LYONS on 09/11/21 220 Discontinued Medications Famotidine (Pepcid) 20 Mg Tablet, 20 MG PO BID Prescribed by: BRIANDA DAWSON on 12/22/182042 Ibuprofen (Ibuprofen) 800 Mg Tablet, 600 MG PO Q8H PRN for PAIN Prescribed by: JOSE LYONS on 10/23/182055 Ibuprofen (Ibuprofen) 800 Mg Tablet, 800 MG PO Q8H PRN for PAIN Prescribed by: JOSE LYONS on 03/29/191926 Prednisone (Prednisone) 20 Mg Tab, 30 MG PO BID Prescribed by: BRIANDA DAWSON on 12/22/182042 Tramadol HCl (Tramadol HCl) 50 Mg Tablet, 50 MG PO Q4H PRN for PAIN-MODERATE (5- 7) Prescribed by: YOSEF ZEPEDA on 02/10/21 0706 Tramadol HCl (Tramadol HCl) 50 Mg Tablet, 50 MG PO Q6H PRN for PAIN Prescribed by: YOSEF ZEPEDA on 02/12/21206 Tramadol HCl (Tramadol HCl) 50 Mg Tablet, 50 MG PO Q6H PRN for PAIN Prescribed by: YOSEF ZEPEDA on 02/12/21206 Review of Systems Constitutional: no symptoms reported EENTM: no symptoms reported Respiratory: no symptoms reported Cardiovascular: no symptoms reported Gastrointestinal: no symptoms reported Genitourinary: no symptoms reported Musculoskeletal: see HPI, joint pain (anterior right knee pain, worse with movement/palpation/bearing weight) Skin: other (superficial abrasion to right anterior and inferior knee) Psychiatric/Neurological: Denies Numbness, Denies Paresthesia Past Xaylgpm-Eluncw-Dpuoci Hx Patient Social History Tobacco Use?: No Substance use?: No Alcohol Use?: No Pt feels they are or have been: No Seasonal Allergies Seasonal Allergies: No Past Medical History Surgeries: No Respiratory: No Cardiac: No Neurological: No Genitourinary: No Gastrointestinal: No Musculoskeletal: No Endocrine: No HEENT: No Cancer: No Psychosocial: No Integumentary: No Blood Disorders: No Physical Exam Vital Signs Vital Signs - First Documented 09/11/21 21:17 Temp 37.0 Pulse 87 Resp 16 B/P (MAP) 129/83 (98) Pulse Ox 99 O2 Delivery Room Air Capillary Refill : Height, Weight, BMI Height: 5'2.00" Weight: 130lbs. 0oz. 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, no motor/sensory deficits, alert, oriented x 3 Skin: warm/dry, other (superficial abrasion to right patella over the inferior aspect) Procedures/Interventions Suture Size: 5-0 Splinting and Joint Reduction : Location: right knee Pre-Proc Neuro Vasc Exam: normal Post-Proc Neuro Vasc Exam: normal Bentley wrap: Yes Progress/Results/Core Measures Results/Orders My Orders Orders - JOSE LYONS MD Ibuprofen Tablet (Motrin Tablet) (09/11/21 21:22) Ice: Apply To Affected Area (09/11/21 21:22) Elevate Affected Extremity (09/11/21 21:22) Knee 3 View Right (09/11/21 21:22) Vital Signs/I&O 09/11/21 21:17 Temp 37.0 Pulse 87 Resp 16 B/P (MAP) 129/83 (98) Pulse Ox 99 O2 Delivery Room Air Progress Progress Note #1: Progress Note Ibuprofen for pain/inflammation, ice and elevation for pain. Obtain xrays of the knee to evaluate for bony abnormality/injury Progress Note #2: Progress Note No acute fracture or dislocation seen on the x-rays of the right knee. Applied Bentley bandage for compression and support. Counseled on follow-up and return precautions. Continue with ibuprofen, ice, elevation to help with pain and inflammation. 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 FINDINGS: 3 views of the right knee joint demonstrate no acute fracture or dislocation. No focal osseous lesions are seen. No significant joint effusion is seen. The surrounding soft tissue structures are unremarkable. There are no radiopaque foreign bodies. IMPRESSION: 1. No acute fractures or dislocations of the right knee joint. Dictated on workstation # [id number] Dict: 09/11/217 Trans: 09/11/212149 [facility] [id number] Interpreted by: SMOOTH MARTINEZ MD Electronically signed by: Reviewed: Reviewed by Me Departure Impression Primary Impression: Contusion of right knee, initial encounter Disposition: HOME, SELF-CARE Condition: Stable Departure-Patient Inst. Decision time for Depature: 22:02 Referrals: CLIFF FREIRE MD (PCP/Family) Primary Care Physician Patient Instructions: Knee Pain ED, Minor Contusion ED Add. Discharge Instructions: The xrays do not show any fracture or broken bones. Use the bentley bandage for compression and support on your knee. Wear this for the next 7 to 10 days. You may remove it to shower but otherwise you should continue to use it to give support to your knee. Ice 15-20 minutes every few hours as needed for pain and swelling to your knee. If you continue to have pain/problems you should check with clinic for continued concerns as you may need to see Orthopedics or have Physical Therapy to help your knee heal. Continue with Ibuprofen to help with pain and inflammation. All discharge instructions reviewed with patient and/or family. Voiced understanding. Scripts Ibuprofen (Ibuprofen) 800 Mg Tablet 800 MG PO Q8H PRN for PAIN for 10 Days, #30 TAB 0 Refills Prov: JOSE LYONS MD 09/11/21 JOSE LYONS MD Sep 11, 2021 21:29
--- NOTE | 2021-09-11 21:51 | Diagnostic Imaging Report ---
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 FINDINGS: 3 views of the right knee joint demonstrate no acute fracture or dislocation. No focal osseous lesions are seen. No significant joint effusion is seen. The surrounding soft tissue structures are unremarkable. There are no radiopaque foreign bodies. IMPRESSION: 1. No acute fractures or dislocations of the right knee joint. Dictated by: Dictated on workstation # [id number]
[2021-09-11] MEDS ORDERED: IBUP-1780 PO (22:06)
== END 2021-09-11 22:11 | disposition home or self-care (01) ==
LOC: EDUNIT# 21:14 → ER FS 21:15
DX: S80.01XA Contusion of right knee, initial encounter (principal); W18.12XA Fall from or off toilet with subsequent striking against object, initial encounter
CPT/HCPCS: 73562

== ENCOUNTER 2022-03-04 19:01 | Emergency (ER) | payer SELFPAY ==
[~2022-03-04] VITALS: Ht 154.9 cm; Wt 64.9 kg
[2022-03-04 19:04] VITALS: BP 129/64
--- NOTE | 2022-03-04 19:13 | ED Upper Extremity ---
General Chief Complaint: Upper Extremity Stated Complaint: R WRIST PAIN Source: patient Exam Limitations: no limitations History of Present Illness Date Seen by Provider: Mar 04, 2022 Time Seen by Provider: 19:03 Initial Comments 26-year-old female is zvqgx-cfyf-jyoalhab with no pertinent past medical history coming in after she hit her right wrist on a hard surface about an hour prior to arrival. She is having pain that is constant, throbbing, worse with touching it, better with rest. She has not taken any medicines for it as of yet. She is otherwise denying any other acute complaints. Allergies and Home Medications Allergies Coded Allergies: No Known Drug Allergies (Unverified , 12/22/18) Patient Home Medication List Home Medication List Reviewed: Yes Ibuprofen (Ibuprofen) 800 Mg Tablet, 800 MG PO Q8H PRN for PAIN Prescribed by: JOSE LYONS on 09/11/212205 Review of Systems Constitutional: No fever EENTM: no symptoms reported Respiratory: no symptoms reported Cardiovascular: no symptoms reported Gastrointestinal: no symptoms reported Genitourinary: no symptoms reported Musculoskeletal: see HPI Skin: no symptoms reported Psychiatric/Neurological: No Symptoms Reported All Other Systems Reviewed Negative Unless Noted: Yes Past Zpnqgsb-Puiami-Htjopq Hx Patient Social History Tobacco Use?: No Substance use?: No Alcohol Use?: No Pt feels they are or have been: No Seasonal Allergies Seasonal Allergies: No Past Medical History Surgeries: No Respiratory: No Cardiac: No Neurological: No Genitourinary: No Gastrointestinal: No Musculoskeletal: No Endocrine: No HEENT: No Cancer: No Psychosocial: No Integumentary: No Blood Disorders: No Physical Exam Vital Signs Vital Signs - First Documented 03/04/22 19:04 Temp 37.0 Pulse 83 Resp 14 B/P (MAP) 129/64 (85) Pulse Ox 100 O2 Delivery Room Air Capillary Refill : Height, Weight, BMI Height: 5'2.00" Weight: 130lbs. 0oz. 58.295180ul; 28.00 BMI Method:Stated General Appearance: WD/WN, no apparent distress HEENT: PERRL/EOMI, normal ENT inspection, pharynx normal Neck: non-tender, full range of motion, supple, normal inspection Cardiovascular: regular rate, rhythm, no edema, no murmur Respiratory: chest non-tender, lungs clear, normal breath sounds, no respiratory distress, no accessory muscle use Gastrointestinal: normal bowel sounds, non tender, soft; No distended, No guarding, No rebound Back: normal inspection Shoulder: normal inspection, non-tender, no evidence of injury, normal ROM Elbow/Forearm: normal inspection, non-tender, no evidence of injury, normal ROM Wrist: Yes normal ROM, Yes bone tenderness (Ulnar styloid), Yes ecchymosis, Yes swelling Hand: normal inspection, non-tender, no evidence of injury, normal ROM Neurologic/Tendon: normal sensation, normal motor functions, normal tendon functions Neurologic/Psychiatric: no motor/sensory deficits, alert, normal mood/affect Skin: normal color, warm/dry Lymphatic: no adenopathy Procedures/Interventions Suture Size: 5-0 Progress/Results/Core Measures Results/Orders My Orders Orders - MACKENZIE RUBIN MD Wrist 3 View Right (03/04/22 19:11) Ibuprofen Tablet (Motrin Tablet) (03/04/22 19:15) Vital Signs/I&O 03/04/22 19:04 Temp 37.0 Pulse 83 Resp 14 B/P (MAP) 129/64 (85) Pulse Ox 100 O2 Delivery Room Air Progress Progress Note : Progress Note 26-year-old female with above history coming in due to right wrist pain after hitting it on something hard. ABCs were intact and vitals were stable on presentation. She does have some soft tissue swelling just around her ulnar styloid on the right wrist. X-ray ordered and interpreted by me showing no fracture or dislocation. Given ibuprofen for pain. Offered a wrist splint for comfort. She should follow-up with orthopedics as an outpatient if things are not improving. Departure Impression Primary Impression: Contusion of right wrist Qualified Codes: S60.211A - Contusion of right wrist, initial encounter Disposition: HOME, SELF-CARE Condition: Stable Departure-Patient Inst. Decision time for Depature: 19:19 Referrals: CLIFF FREIRE MD (PCP/Family) Primary Care Physician BOBBI SULLIVAN Patient Instructions: Common Wrist Injuries (DC) Add. Discharge Instructions: Fortunately nothing is broken, is just a deep bruise on the bone. Take ibuprofen 600 mg every 6 hours as needed for pain. He can also take Tylenol 1000 mg every 6 hours if that is not working. I recommend icing it at least 3 times a day for 20 minutes each time. You can use the wrist splint for comfort, but is not necessary if you do not want to wear it. Follow-up with Gus Sullivan here in [facility] who is the bone specialist if things are not getting better in the next week or so. His number is in this paperwork. Work/School Note: Work Release Form Date Seen in the Emergency Department: Mar 04, 2022 Return to Work: Mar 05, 2022 Restrictions: No Restrictions MACKENZIE RUBIN MD Mar 04, 2022 19:13
[2022-03-04] MEDS ORDERED: IBUPROFEN 600 MG (MOTRIN) TAB PO ONE (19:15)
--- NOTE | 2022-03-04 20:04 | Diagnostic Imaging Report ---
CLINICAL INDICATION: Patient with ulnar styloid pain after trauma. EXAM: X-ray of the right wrist, 3 views. COMPARISON: X-ray of the right wrist dated 02/28/2021. FINDINGS AND IMPRESSION: 1: There is soft tissue swelling adjacent to the distal aspect of the ulna noted which has slightly increased. There is no fracture or dislocation seen near the region. The ulnar styloid process is intact. 2: Scapholunate interval and distal radioulnar joints unremarkable. Dictated by: Dictated on workstation # [id number]
== END 2022-03-04 19:24 | disposition home or self-care (01) ==
LOC: EDUNIT# 19:01 → ER FS 19:02
DX: S60.211A Contusion of right wrist, initial encounter (principal); Z28.310 Unvaccinated for COVID-19; W22.8XXA Striking against or struck by other objects, initial encounter
CPT/HCPCS: 73110

== ENCOUNTER 2022-11-21 17:33 | Emergency (ER) | payer SELFPAY ==
[~2022-11-21] VITALS: Ht 154 cm; Wt 68.0 kg
--- NOTE | 2022-11-21 17:42 | ED Upper Extremity ---
General Chief Complaint: Upper Extremity Stated Complaint: FELL,L WRIST PAIN Source: patient Exam Limitations: no limitations History of Present Illness Date Seen by Provider: November 21, 2022 Time Seen by Provider: 17:38 Initial Comments 27-year-old female presents for left wrist pain. She was walking down some stairs and her cat ran in front of her causing her to fall on her outstretched wrist. No other injuries. All other systems reviewed and negative except documented per HPI. Voice recognition software was used to help create this chart Allergies and Home Medications Allergies Coded Allergies: No Known Drug Allergies (Unverified , 12/22/18) Patient Home Medication List Home Medication List Reviewed: Yes Ibuprofen (Ibuprofen) 800 Mg Tablet, 800 MG PO Q8H PRN for PAIN Prescribed by: JOSE LYONS on 09/11/212205 Review of Systems Constitutional: see HPI Past Ibzragt-Fiojgx-Ppmamo Hx Patient Social History Tobacco Use?: No Use of E-Cig and/or Vaping dev: No Substance use?: No Alcohol Use?: No Pt feels they are or have been: No Immunizations Up To Date First/Initial COVID19 Vaccinat: unvaccinated Second COVID19 Vaccination Mauri: unvaccinated Third COVID19 Vaccination Date: unvaccinated Seasonal Allergies Seasonal Allergies: No Past Medical History Surgeries: No Appendectomy, Gallbladder, Hysterectomy Respiratory: No Cardiac: No High Cholesterol, Hypertension Neurological: 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 0oz. 58.518010wj; 27.00 BMI Method:Stated General Appearance: WD/WN, no apparent distress HEENT: normal ENT inspection Neck: non-tender, supple Cardiovascular: regular rate, rhythm, no murmur Respiratory: chest non-tender, lungs clear, normal breath sounds, no respiratory distress Wrist: Yes swelling (Redness and swelling to the dorsum of the left wrist at the proximal portion of the wrist. No obvious deformity. Neurovascular motor and sensory intact.) Procedures/Interventions Suture Size: 5-0 Progress/Results/Core Measures Results/Orders My Orders Orders - MARIA DEL CARMEN VELASCO DO Wrist 3 View Left (11/21/22 17:37) Vital Signs/I&O 11/21/22 17:35 Temp 37.0 Pulse 75 Resp 18 B/P (MAP) 122/50 (74) Pulse Ox 98 O2 Delivery Room Air Departure Communication (Admissions) No fractures or dislocations on my independent review. She does have some soft tissue swelling. Conservative care. Impression Primary Impression: Left wrist sprain Qualified Codes: S63.502A - Unspecified sprain of left wrist, initial encounter Disposition: HOME, SELF-CARE Condition: Stable Departure-Patient Inst. Referrals: CLIFF FREIRE MD (PCP/Family) Primary Care Physician Patient Instructions: Wrist Sprain ED Add. Discharge Instructions: Use ibuprofen and Tylenol as needed for pain. Ice the area as needed about 20 minutes at a time. Elevate the area when not in use. Perform range of motion exercises as tolerated. Return to the emergency department for any severe concerns. All discharge instructions reviewed with patient and/or family. Voiced u nderstanding. MARIA DEL CARMEN VELASCO DO November 21, 2022 17:42
--- NOTE | 2022-11-21 17:56 | Diagnostic Imaging Report ---
INDICATION: Injury, pain. EXAMINATION: Left wrist 11/21/2022. COMPARISON: 08/13/2020. FINDINGS: There is no fracture or dislocation. The joint spaces appear maintained. There is soft tissue swelling about the wrist. IMPRESSION: Soft tissue swelling with no acute fracture identified. Dictated by: Dictated on workstation # [id number]
[2022-11-21 18:01] VITALS: BP 122/50
== END 2022-11-21 18:01 | disposition home or self-care (01) ==
LOC: EDUNIT# 17:33 → ER FS 17:34
DX: S63.502A Unspecified sprain of left wrist, initial encounter (principal); Z28.310 Unvaccinated for COVID-19; W10.9XXA Fall (on) (from) unspecified stairs and steps, initial encounter; Y93.01 Activity, walking, marching and hiking
CPT/HCPCS: 73110

== ENCOUNTER 2022-11-23 19:07 | Emergency (ER) | payer SELFPAY ==
[~2022-11-23] VITALS: Ht 154.9 cm; Wt 68.0 kg
--- NOTE | 2022-11-23 19:23 | ED Upper Extremity ---
General Chief Complaint: Upper Extremity Stated Complaint: RIGHT HAND INJ|PAIN Source: patient History of Present Illness Date Seen by Provider: November 23, 2022 Time Seen by Provider: 19:09 Initial Comments 27-year-old female presenting with complaints of increased pain and swelling to her left hand. She reports that her cat tripped her and she fell down some stairs on November 21. She was seen in the emergency department at that time and diagnosed with a wrist sprain. Reported that there were no fractures on the x- rays. Patient states that her pain and swelling has increased. She had been at work all day and has not taken any ibuprofen since 5 AM. She states that the swelling is so bad that she feels like she cannot move her fingers. She has not been icing it or resting it and no elevation of the hand either. She was not given any sort of splint or assistive device to rest her hand or wrist. She denies any other injuries from the fall. Because the pain and swelling and gotten worse she came to the emergency department after getting off work today. Patient is right-hand dominant Onset: other (Fall on November 21) Severity: severe Pain/Injury Location: left hand Method of Injury: fell Modifying Factors: Worse With Movement Allergies and Home Medications Allergies Coded Allergies: No Known Drug Allergies (Unverified , 12/22/18) Patient Home Medication List Home Medication List Reviewed: Yes Ibuprofen (Ibuprofen) 800 Mg Tablet, 800 MG PO Q8H PRN for PAIN Prescribed by: JOSE LYONS on 11/23/221942 Review of Systems Constitutional: No chills, No dizziness, No fever EENTM: no symptoms reported Respiratory: no symptoms reported Cardiovascular: no symptoms reported Gastrointestinal: no symptoms reported Genitourinary: no symptoms reported Musculoskeletal: see HPI Skin: see HPI Psychiatric/Neurological: Denies Numbness, Denies Paresthesia Past Vdfcfip-Gaiaiy-Npzqsg Hx Immunizations Up To Date First/Initial COVID19 Vaccinat: unvaccinated Second COVID19 Vaccination Mauri: unvaccinated Third COVID19 Vaccination Date: unvaccinated Seasonal Allergies Seasonal Allergies: No Past Medical History Surgeries: No Appendectomy, Gallbladder, Hysterectomy Respiratory: No Cardiac: No High Cholesterol, Hypertension Neurological: 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 0oz. 58.154096tp; 28.00 BMI Method:Stated General Appearance: WD/WN, no apparent distress HEENT: PERRL/EOMI Neck: non-tender, supple Cardiovascular: normal peripheral pulses Wrist: Yes normal inspection, Yes non-tender, Yes no evidence of injury, Yes normal ROM Hand: Left, bone tenderness, limited ROM, soft tissue tenderness, stiffness, swelling (left hand along MCP joints) Neurologic/Tendon: normal sensation Neurologic/Psychiatric: alert, oriented x 3 Skin: normal color, warm/dry Procedures/Interventions Suture Size: 5-0 Progress/Results/Core Measures Results/Orders My Orders Orders - JOSE LYONS MD Hand 3 View Left (11/23/22 19:14) Ice: Apply To Affected Area (11/23/22 19:29) Orthopedic Equiment (11/23/22 19:29) Ed Ortho/Other Supplies Order (11/23/22 19:29) Ibuprofen Tablet (Motrin Tablet) (11/23/22 19:43) Vital Signs/I&O 11/23/22 11/23/22 19:10 19:49 Temp 36.7 36.7 Pulse 78 Resp 16 B/P (MAP) 128/72 (90) Pulse Ox 100 O2 Delivery Room Air Progress Progress Note #1: Progress Note Potential diagnosis of hand fracture, hand contusion, hematoma. We will repeat x-rays today to see if there is been any change in reviewed the films from 2 days ago. We will provide with an ice pack and elevate hand as well as order a splint to help give support and rest the left hand. Progress Note #2: Time: 19:24 Progress Note On my personal interpretation and review of the three-view films of the left hand she has no acute fracture or dislocation. She does have soft tissue swelling. Compared to x-rays from 525 there is no acute change. We will proceed with plan as above with a volar splint to rest and support the left hand and an Bentley bandage for compression. Stressed the importance of ice and elevation and resting the hand so it can heal. Counseled to check back with her primary care provider, Dr. Freire, for continued concerns. Diagnostic Imaging Diagonstic Imaging: Xray Plain Films/CT/US/NM/MRI: hand Comments NAME: RODRIGUEZ CASTILLO [facility] REC#: [id number] PT STATUS: REG ER : 1995 PHYSICIAN: JSOE LYONS MD ADMIT DATE: 11/23/22/ER FS Draft Date of Exam:11/23/22 HAND 3 VIEW LEFT INDICATION: Left hand injury with pain and swelling. EXAMINATION: AP, oblique and lateral views of the left hand were obtained. FINDINGS: No acute fracture or dislocation is identified. No abnormal lytic or sclerotic focus is seen and there is no radiopaque foreign body. IMPRESSION: No acute abnormality. Dictated on workstation # [id number] Dict: 11/23/221932 Trans: 11/23/221936 [facility] [id number] Interpreted by: JOSE SILVA MD Electronically signed by: Reviewed: Reviewed by Me Departure Impression Primary Impression: Contusion of left hand, initial encounter Additional Impressions: Swelling of left hand Fall on stairs Qualified Codes: W10.9XXA - Fall (on) (from) unspecified stairs and steps, initial encounter Disposition: HOME, SELF-CARE Condition: Stable Departure-Patient Inst. Decision time for Depature: 19:27 Referrals: CLIFF FREIRE MD (PCP/Family) Primary Care Physician Patient Instructions: Acute Pain, Adult (DC), Hand Pain (DC), Minor Contusion ED, Splint Care, Using Cold for Pain Add. Discharge Instructions: Rest and elevate left hand as much as possible to help decrease the swelling and pain. Use the bentley bandage and hand splint to help support and rest the left hand. Ice 15-20 minutes every few hours to help with swelling and pain. Check back with Dr. Freire if still not improving this week. Continue with Acetaminophen to help with pain and may alternate with Ibuprofen to help with pain and inflammation. All discharge instructions reviewed with patient and/or family. Voiced understanding. Scripts Ibuprofen (Ibuprofen) 800 Mg Tablet 800 MG PO Q8H PRN for PAIN for 10 Days, #30 TAB 0 Refills Prov: JOSE LYONS MD 11/23/22 Work/School Note: Work Release Form Date Seen in the Emergency Department: November 23, 2022 Return to Work: November 24, 2022 Restrictions: No PE-Until Released Other Restrictions Listed Below: Ice 20 minutes every 4 hours as needed for swelling/pain Restrictions: Keep hand elevated above heart level as much as possible for pain/swelling JOSE LYONS MD November 23, 2022 19:23
--- NOTE | 2022-11-23 19:37 | Diagnostic Imaging Report ---
INDICATION: Left hand injury with pain and swelling. EXAMINATION: AP, oblique and lateral views of the left hand were obtained. FINDINGS: No acute fracture or dislocation is identified. No abnormal lytic or sclerotic focus is seen and there is no radiopaque foreign body. IMPRESSION: No acute abnormality. Dictated by: Dictated on workstation # [id number]
[2022-11-23] MEDS ORDERED: IBUP-1780 PO (19:43)
[2022-11-23] MEDS ORDERED: IBUPROFEN 800 MG (MOTRIN) TAB PO STA (19:43)
[2022-11-23 19:50] VITALS: BP 128/72
== END 2022-11-23 19:50 | disposition home or self-care (01) ==
LOC: EDUNIT# 19:07 → ER FS 19:09
DX: S60.222A Contusion of left hand, initial encounter (principal); Z28.310 Unvaccinated for COVID-19; W10.9XXA Fall (on) (from) unspecified stairs and steps, initial encounter
CPT/HCPCS: 73130